=== PATIENT | male | born 1985 | race African-American/Black ===

== ENCOUNTER 2016-10-17 13:00 | Emergency (ER) | payer SELFPAY ==
[~2016-10-17] VITALS: Ht 182.9 cm; Wt 76.3 kg
[~2016-10-17 13:00] MED LIST: AMOXICILLIN500 M1 PO; PERCOCET 5/31 TABLET PO
[2016-10-17] MEDS ORDERED: MEDROL DOSEPAK4 MG PO (14:47)
[2016-10-17] MEDS ORDERED: FLEXERIL10 MG PO (14:47)
[2016-10-17] MEDS ORDERED: ULTRAM50 MG PO (14:47)
[2016-10-17 14:48] LABS: ADD MIUA? NO; BILIRUBIN NEGATIVE; BLOOD NEGATIVE; COLOR YELLOW ((YELLOW)); GLUCOSE (STRIP) NEGATIVE; KETONES NEGATIVE; LEUKOCYTES NEGATIVE; NITRITE NEGATIVE; PROTEIN (STRIP) NEGATIVE; SPECIFIC GRAVITY 1.023 (1.000-1.030); UROBILINOGEN 0.2 MG/DL (0.2-1.0)
[2016-10-17 15:57] VITALS: BP 140/84
== END 2016-10-17 14:51 | disposition home or self-care (01) ==
LOC: EME 13:00
PROVIDERS: Nurse Practitioner Family
DX: M54.42 Lumbago with sciatica, left side (principal); Z72.0 Tobacco use
CPT/HCPCS: 81003; 99281; 99283; J1885; J7512

== ENCOUNTER 2016-10-20 09:53 | Emergency (ER) | payer OTHER ==
[~2016-10-20] VITALS: Ht 182.9 cm; Wt 79.4 kg
[~2016-10-20 09:53] MED LIST changes: +FLEXERIL10 MG PO; +MEDROL DOSEPAK4 MG PO; +ULTRAM50 MG PO
[2016-10-20] MEDS ORDERED: NAPROSYN500 MG PO (13:32)
[2016-10-20] MEDS ORDERED: NORCO 5/3251 TABLET PO (13:32)
[2016-10-20 13:48] VITALS: BP 139/87
== END 2016-10-20 13:50 | disposition home or self-care (01) ==
LOC: EME 09:53
DX: M54.32 Sciatica, left side (principal)
CPT/HCPCS: 99281; 99284; J1885